=== PATIENT | male | born 1975 | race Caucasian/White ===

== ENCOUNTER 2024-04-22 17:16 | Inpatient (IN) | payer MEDICARE, MEDICAID ==
[~2024-04-22] VITALS: Ht 185.4 cm; Wt 107.8 kg
[2024-04-22] MEDS ORDERED: mag hydrox/Alum hydrox/simeth 30ml oral suspension PO PRN (22:55)
[2024-04-22] MEDS ORDERED: magnesium hydroxide 30ml (MOM) UD suspension PO PRN (22:55)
[2024-04-22] MEDS ORDERED: OXCA300T4 PO (23:47)
[2024-04-22] MEDS ORDERED: ESCI10TA PO (23:47)
[2024-04-22] MEDS ORDERED: LEVE500T PO (23:47)
[2024-04-22] MEDS ORDERED: HALO0.5T PO (23:47)
[2024-04-22] MEDS ORDERED: TOPI25CA7 PO (23:47)
[2024-04-22] MEDS ORDERED: FLUT9.9S BOTHNARES (23:47)
[2024-04-22] MEDS ORDERED: OXCA600T5 PO (23:47)
[2024-04-22] MEDS ORDERED: FLUT16SP26 (23:47)
[2024-04-22 23:50] VITALS: RESP 20; O2SAT 96
[2024-04-22] MEDS ORDERED: TOP25T PO (23:50)
[2024-04-23] MEDS: acetaminophen 325mg tablet PO PRN (05:58)
[2024-04-23 07:00] VITALS: BP 131/78; PULSE 68; RESP 16; TEMP 98.9; O2SAT 99
[2024-04-23 07:34] LABS: HEMOGLOBIN A1C 5.3 % (4.5-6.2)
[2024-04-23 07:54] LABS: CHOL/HDL RATIO 4.2 (0.00-4.99); CHOLESTEROL 199 MG/DL (0-200); HDL CHOLESTEROL 47 MG/DL (35-60); LDL CHOLESTEROL 121 MG/DL (50-100); TRIGLYCERIDES 91 MG/DL (20-135)
[2024-04-23] MEDS ORDERED: nicotine 21mg patch - 24 hr TD SCH (08:00)
[2024-04-23] MEDS: nicotine 21mg patch - 24 hr TD SCH (08:32)
[2024-04-23 08:37] VITALS: RESP 16; O2SAT 99
[2024-04-23] MEDS: haloperidol 1mg tablet PO SCH (09:53)
[2024-04-23] MEDS: oxcarbazepine 150mg tablet PO SCH ×2 (09:54→20:53)
[2024-04-23] MEDS: topiramate 25mg tablet PO SCH (09:54)
[2024-04-23] MEDS: ESCITALOPRAM 10 mg tablet 10 MG TABLET PO SCH (09:54)
[2024-04-23] MEDS: levetiracetam 250mg tablet PO SCH (09:54)
[2024-04-23 19:00] VITALS: BP 102/62; PULSE 78; RESP 13; RESP 16; TEMP 98.3; O2SAT 94; O2SAT 99
[2024-04-23] MEDS: fluticasone nasal spray 16GM bottle NS SCH (20:52)
[2024-04-24 07:00] VITALS: BP 117/92; PULSE 66; RESP 16; TEMP 97.7; O2SAT 98
[2024-04-24 07:52] VITALS: RESP 16; O2SAT 98
[2024-04-24] MEDS: ondansetron 4mg rapidly disintigrating tab PO PRN (16:40)
[2024-04-24] MEDS: SUMAtriptan 25 MG tablet PO PRN (18:30)
[2024-04-24 19:00] VITALS: RESP 18; O2SAT 98
[2024-04-24 20:00] VITALS: BP 127/89; PULSE 75; RESP 18; TEMP 97.4; O2SAT 98
[2024-04-25 07:00] VITALS: BP 103/76; PULSE 81; RESP 16; TEMP 97.6; O2SAT 96
[2024-04-25] MEDS: NICOTINE POLACRILEX 2 MG LOZENGE BC PRN (07:02)
[2024-04-25 15:46] LABS: ALBUMIN 3.4 G/DL (3.4-5.0); ANION GAP 9 (8-16); BLOOD UREA NITROGEN 13 MG/DL (7-18); CHLORIDE 106 MMOL/L (99-107); CREATININE 0.81 MG/DL (0.60-1.10); GLUCOSE 102 MG/DL (70-104); POTASSIUM 3.8 MMOL/L (3.5-5.1); SODIUM 140 MMOL/L (135-145); TOTAL CARBON DIOXIDE 25.5 MMOL/L (24-32); eCRCL 126 ML/MIN; eGFR > 90 ML/MIN
[2024-04-25] MEDS: ketorolac trometh 30MG/ML vial 30 MG/ML VIAL IM PRN (16:54)
[2024-04-25 19:00] VITALS: RESP 18; O2SAT 97
[2024-04-25 20:00] VITALS: BP 125/85; PULSE 99; RESP 18; TEMP 96.9; O2SAT 94
[2024-04-26] MEDS: acetaminophen 325mg tablet PO PRN (03:58)
[2024-04-26 07:00] VITALS: BP 117/83; PULSE 68; RESP 12; TEMP 98.2; O2SAT 95
[2024-04-26] MEDS ORDERED: ESCITALOPRAM 10 mg tablet 10 MG TABLET PO SCH (09:10)
[2024-04-26] MEDS: lurasidone 20mg tablet PO SCH (09:28)
[2024-04-26] MEDS: ESCITALOPRAM 10 mg tablet 10 MG TABLET PO SCH (09:54)
[2024-04-26 19:00] VITALS: RESP 12; O2SAT 95
[2024-04-26 20:00] VITALS: BP 120/79; PULSE 77; RESP 14; TEMP 98.3; O2SAT 96
[2024-04-27 07:00] VITALS: BP 114/74; PULSE 58; RESP 18; TEMP 97.8; O2SAT 97
[2024-04-27] MEDS: ESCITALOPRAM 10 mg tablet 10 MG TABLET PO SCH (07:26)
[2024-04-27] MEDS ORDERED: NICO-687 TD (09:30)
[2024-04-27] MEDS ORDERED: SUMA25TA9 PO (09:30)
[2024-04-27] MEDS ORDERED: LURA20TA2 PO (09:30)
[2024-04-27] MEDS ORDERED: ESCI-8 PO (09:30)
[2024-04-27] MEDS ORDERED: NICO-907 BC (09:30)
== END 2024-04-27 12:45 | disposition home or self-care (01) | DRG 885 ==
LOC: ADULT MH 22:39
PROVIDERS: ADMIT Psychiatry & Neurology Psychiatry; ATTEND Psychiatry & Neurology Psychiatry
PROC: GZHZZZZ Group Psychotherapy (ICD-10-PCS; principal; 2024-04-23)
PROC: GZ51ZZZ Individual Psychotherapy, Behavioral (ICD-10-PCS; 2024-04-23)
DX: F31.30 Bipolar disorder, current episode depressed, mild or moderate severity, unspecified (principal); F25.0 Schizoaffective disorder, bipolar type; F17.210 Nicotine dependence, cigarettes, uncomplicated; G40.909 Epilepsy, unspecified, not intractable, without status epilepticus; G80.9 Cerebral palsy, unspecified; G89.29 Other chronic pain; Z85.46 Personal history of malignant neoplasm of prostate; Z90.49 Acquired absence of other specified parts of digestive tract; Z88.8 Allergy status to other drugs, medicaments and biological substances
CPT/HCPCS: 36415; 80048; 80061; 83036; 87081; C2617; J1885